=== PATIENT | female | born 1950 | race Two or more races ===

== ENCOUNTER 2020-07-11 16:08 | Emergency (ER) | payer MEDICARE, OTHER ==
[~2020-07-11] VITALS: Ht 172.7 cm; Wt 59.0 kg
[2020-07-11 19:30] VITALS: BP 130/70
== END 2020-07-11 19:25 | disposition home or self-care (01) ==
LOC: EDUNIT# 16:08 → ER 16:08 → EDBD 16:08 → ER 19:25
DX: M19.132 Post-traumatic osteoarthritis, left wrist (principal); I11.0 Hypertensive heart disease with heart failure; I50.9 Heart failure, unspecified; I48.91 Unspecified atrial fibrillation
CPT/HCPCS: 29125; 73110

== ENCOUNTER 2020-12-09 09:36 | Emergency (ER) | payer MEDICARE, MEDICAID ==
[~2020-12-09] VITALS: Ht 180.3 cm; Wt 76.2 kg
[2020-12-09 11:40] VITALS: BP 109/62
== END 2020-12-09 17:50 | disposition home or self-care (01) ==
LOC: EDBD 09:36 → ER 09:36
DX: S70.12XA Contusion of left thigh, initial encounter (principal); I11.0 Hypertensive heart disease with heart failure; I50.9 Heart failure, unspecified; W18.00XA Striking against unspecified object with subsequent fall, initial encounter; Y93.89 Activity, other specified; Y92.89 Other specified places as the place of occurrence of the external cause; Y99.8 Other external cause status